=== PATIENT | male | born 1980 | race Caucasian/White ===

== ENCOUNTER → 2017-04-18 | Outpatient (CLI) | payer BC | END | disposition home or self-care (01) | LOC: PMG 08:20 | PROVIDERS: ATTEND Physician Assistant | DX: R06.00 Dyspnea, unspecified (principal) | CPT/HCPCS: 36415; 85379 ==

== ENCOUNTER → 2020-01-27 | Outpatient (CLI) | payer BC ==
--- NOTE | 2020-01-27 11:58 | RAD ---
CT of the abdomen and pelvis without contrast. 01/27/2020 11:30 AM Indication: Reason: LLQ ABD PAIN / Spl. Instructions: / History: Comparison Study: None. Technique: Multidetector CT imaging of the abdomen pelvis is obtained without administration of contrast. Findings: The visualized bilateral lung bases are clear. The liver, spleen, bilateral adrenal glands, gallbladder, and pancreas have a normal noncontrast enhanced appearance. The bilateral kidneys are grossly normal in appearance. Kidneys have an unremarkable noncontrast enhanced appearance. The bladder is grossly unremarkable. There is no abnormal area of pericolonic inflammation seen in the left lower quadrant. Inflammation does appear to somewhat surround a fat-containing structure is perhaps best appreciated on coronal image 45. No definitive thickening of the underlying colon is seen, though evaluation is somewhat limited secondary to decompressed state and lack of contrast. Notably, no significant diverticulosis is identified involving the colon in the affected region or elsewhere. No associated free fluid or free air is seen. There is no evidence of bowel obstruction. The appendix is well visualized and grossly normal. There is no acute osseous abnormality identified. Impression: Small focus of left lower quadrant pericolonic inflammatory change abutting the the distal descending/sigmoid colon. Differential considerations include mild epiploic appendicitis. A focal bowel injury is felt to be less likely . If symptoms fail to resolve with conservative measures,, or worsen, repeat contrast-enhanced imaging should be considered. CT DOSING PQRS STATEMENT: One or more of the following individualized dose reduction techniques were utilized for this examination: 1. Automated exposure control 2. Adjustment of the mA and/or kV according to patient size 3. Use of iterative reconstruction technique Electronically signed by: Washington Machuca MD (01/27/2020 11:55 AM) [id number]
== END ==
LOC: CT 11:09
PROVIDERS: ATTEND Physician Assistant Medical
DX: K52.89 Other specified noninfective gastroenteritis and colitis (principal)
CPT/HCPCS: 74176